=== PATIENT | male | born 1950 | race Caucasian/White ===

== ENCOUNTER 2023-05-11 09:50 | Observation (INO) | payer OTHER ==
[2023-05-11] MEDS ORDERED: ACETAMINOPHEN 325 MG TABLET PO PRN (11:16)
[2023-05-11] MEDS ORDERED: DIPHENHYDRAMINE 25 MG TAB/CAP PO PRN (11:18)
[2023-05-11] MEDS ORDERED: LOPERAMIDE HCL 2 MG CAPSULE PO PRN (11:19)
[2023-05-11] MEDS ORDERED: ONDANSETRON 4 MG/2 ML VIAL IV PRN (11:20)
[2023-05-11] MEDS ORDERED: POLYETHYL GLY 3350 17 GM/DOSE PO PRN (11:20)
[2023-05-11 11:45] LABS: Absolute Lymphocytes (CBC) 1.2 K/uL (0.7-4.9); Hematocrit 47.3 % (39.6-49.0); Lymphocytes % 17.8 % (15.3-44.8); MCV 88.2 fL (80-100); Platelets 268 thou/uL (152-406); RBC Red Blood Cell Count 5.37 M/uL (4.33-5.43)
[2023-05-11 12:06] LABS: Magnesium 2.2 mg/dL (1.6-2.4); Thyroid Stimulating Hormone 2.23 uIU/mL (0.358-3.740); Troponin High Sensitivity 8.8 pg/mL (<58.9)
[2023-05-11] MEDS: NACHLORIDE 0.45% 1,000 ML IV SCH (12:10)
[2023-05-11] MEDS: SOTALOL HCL 80 MG TAB ONE (12:19)
[2023-05-11] MEDS: SOTALOL HCL 80 MG TAB PO SCH (12:23)
--- NOTE | 2023-05-11 13:49 | RAD REPORT ---
EXAM DESCRIPTION: Talon Matt (2 Views)05/11/2023 1:32 pm CLINICAL HISTORY: AFib COMPARISON: 2020 FINDINGS: The lungs appear clear of acute infiltrate. The heart is normal size IMPRESSION: No acute abnormalities displayed
--- NOTE | 2023-05-11 17:50 | P.SSS ---
Patient History Date of Service: 05/11/23 Reason for admission: RAPID A FIB History of Present Illness: CELE CAME TO OFFICE LAST WEEK, HE HAD RAPID A FIB AT 130. I ADVISED THAT HE SHOULD BE IN HOSPITAL AND WE SHOULD GIVE HIM MEDS TO REVERSE A FIB. HE DID NOT WANT TO BE ADMITTED. HE WANTED TO CALL HIS EPS MD IN [place] AND SEE IF HE CAN DO THIS IN [place]. HE DID NOT HAVE A RIDE FOR A WEEK BUT HE STILL REFUSED TO GO TO HOSPITAL. I ASKED HIM TO CALL IF HE CHANGES HIS DECISION. HE DID SO BY GOING TO DR. BOBO AND GOT ADMITTED TODAY. I HAD GIVEN HIM ELIQUIS AND HE HAD HEMATURIA. CULTURE GREW STAPH EPID AND SO TODAY I CHANGED HIS ANTBIOTIC. CIPRO WILL NOT WORK. Allergies iodine Allergy (Verified 05/11/23 11:07) Hives midazolam [From Versed] Allergy (Verified 05/11/23 11:07) Hives hydrocodone Adverse Reaction (Verified 05/11/23 11:07) Nausea/Vomiting [id number] Reductase Inhibitor Adverse Reaction (Verified 05/11/23 11:07) Hives Home Medications: Amlodipine [Norvasc*] 2.5 mg PO DAILY 05/11/23 Apixaban [Eliquis] 5 mg PO DAILY 05/11/23 Aspirin Chewable [Aspirin Chewable*] 81 mg PO DAILY 05/11/23 Ciprofloxacin 250 mg PO BID 05/11/23 Metoprolol Succinate 25 mg PO DAILY 05/11/23 - Past Medical/Surgical History Diabetic: No -: AFib -: high cholestrol -: Acid reflux -: prostate sx -: rotator cuff sx -: heart ablasions -: orthoscopic knee sx -: discectomy - Social History Smoking Status: Never smoker Alcohol use: Yes CD- Drugs: No Caffeine use: No Place of Residence: Home Review of Systems 10-point ROS is otherwise unremarkable Physical Examination - Physical Exam General: Alert, In no apparent distress HEENT: Atraumatic, PERRLA, Mucous membr. moist/pink, EOMI, Sclerae nonicteric Neck: Supple, 2+ carotid pulse no bruit, No LAD, Without JVD or thyroid abnormality Respiratory: Clear to auscultation bilaterally, Normal air movement Cardiovascular: Irregular heart rate/rhythm Gastrointestinal: Normal bowel sounds, No tenderness Musculoskeletal: No tenderness Integumentary: No rashes Neurological: Normal gait, Normal speech, Normal strength at 5/5 x4 extr, Normal tone, Normal affect Lymphatics: No axilla or inguinal lymphadenopathy - Studies Laboratory Data (last 24 hrs) 05/11/23 05/11/23 11:31 11:31 WBC 6.70 Hgb 16.3 Hct 47.3 Plt Count 268 Sodium 140 Potassium 4.0 BUN 21 H Creatinine 1.19 Glucose 94 Magnesium 2.2 - Diagnosis (Problem(s)) (1) Rapid atrial fibrillation Current Visit: Yes Status: Acute Plan: HOPEFULLY WITH SOTALOL HE WILL CONVERT TO NSR I AM NOT SURE IF HE WILL TOLERATE ELIQUIS OR ANY AC. MAY NEED WATCHMAN LATER. (2) UTI (urinary tract infection) Current Visit: Yes Status: Acute Plan: ABOVE (3) Hematuria Current Visit: Yes Status: Acute Plan: HE WILL NEED TO GO BACK TO HIS UROLOGIST ONCE STABLE WITH A FIB. - Disposition Disposition: ROUTINE DISCHARGE
[2023-05-11] MEDS: APIXABAN 5 MG TABLET PO SCH (21:34)
[2023-05-11] MEDS: DOXYCYCLINE 100 MG CAP PO SCH (21:34)
[2023-05-11 22:11] LABS: Specific Gravity 1.012 (1.005-1.030); Urine Bacteria None Seen /HPF (<20); Urine Bilirubin NEGATIVE (Negative); Urine Blood Negative (Negative); Urine Clarity Extremely Turbid (Clear); Urine Color Light-Yellow (Yellow); Urine Glucose NEGATIVE (Negative); Urine Granular Casts 0-5 /LPF (None Seen); Urine Mucus 1+ /HPF (None Seen); Urine Protein NEGATIVE (Negative); Urine RBC <5 /HPF (None Seen); Urine Urobilinogen Normal (Normal)
[2023-05-12] MEDS: SOTALOL HCL 80 MG TAB PO SCH (00:12)
[2023-05-12 06:30] LABS: Absolute Lymphocytes (CBC) 1.4 K/uL (0.7-4.9); Lymphocytes % 22.7 % (15.3-44.8); MCV 87.4 fL (80-100); MPV 8.3 fL (7.6-11.3); Platelets 234 thou/uL (152-406); RBC Red Blood Cell Count 5.04 M/uL (4.33-5.43)
[2023-05-12 06:41] LABS: Magnesium 2.2 mg/dL (1.6-2.4)
--- NOTE | 2023-05-12 10:43 | P.CNS ---
Date of Consult: 05/12/23 Chief Complaint: RAPID A FIB History of Present Illness: patient with PMH of atrial fibrillation with two ablations in the past presented to clinic with AF RVR admitted to the hospital for better AF treatment, started on Sotalol, and this is his 3rd dose, HR better controlled today but still in AF. Allergies iodine Allergy (Verified 05/11/23 11:07) Hives midazolam [From Versed] Allergy (Verified 05/11/23 11:07) Hives hydrocodone Adverse Reaction (Verified 05/11/23 11:07) Nausea/Vomiting [id number] Reductase Inhibitor Adverse Reaction (Verified 05/11/23 11:07) Hives Home Medications: Amlodipine [Norvasc*] 2.5 mg PO DAILY 05/11/23 Apixaban [Eliquis] 5 mg PO DAILY 05/11/23 Aspirin Chewable [Aspirin Chewable*] 81 mg PO DAILY 05/11/23 Ciprofloxacin 250 mg PO BID 05/11/23 Metoprolol Succinate 25 mg PO DAILY 05/11/23 - Past Medical/Surgical History Diabetic: No -: AFib -: high cholestrol -: Acid reflux -: prostate sx -: rotator cuff sx -: heart ablasions -: orthoscopic knee sx -: discectomy - Social History Alcohol use: Yes CD- Drugs: No Caffeine use: No Place of Residence: Home Review of Systems 10-point ROS is otherwise unremarkable Physical Examination Temp Pulse Resp BP Pulse Ox 98.3 F 85 18 100/59 L 94 05/12/23 04:00 05/12/23 06:54 05/12/23 04:00 05/12/23 06:54 05/12/23 04:00 General: Alert, Oriented x3 HEENT: Atraumatic Neck: Supple Respiratory: Clear to auscultation bilaterally Cardiovascular: No edema (irregular rate and rhythm) Gastrointestinal: Normal bowel sounds Musculoskeletal: No clubbing Laboratory Data (last 24 hrs) 05/12/23 05/12/23 05/11/23 05:37 05:37 11:31 WBC 6.30 Hgb 15.4 Hct 44.0 Plt Count 234 Sodium 140 140 Potassium 4.0 4.0 BUN 22 H 21 H Creatinine 1.14 1.19 Glucose 88 94 Magnesium 2.2 2.2 05/11/23 11:31 WBC 6.70 Hgb 16.3 Hct 47.3 Plt Count 268 Sodium Potassium BUN Creatinine Glucose Magnesium - Problems (1) Atrial fibrillation with rapid ventricular response Current Visit: Yes Status: Acute Plan: Continue Sotaolol 80 mg po BID Repat EKG every 8 hours to watch for QT interval prolongation. Continue Eliquis 5 mg po BID NPO after midnight for possible SUKH DCCV in am.
--- NOTE | 2023-05-12 15:46 | EKG ---
Test Date: 2023-05-12 Test Time: 09:56:23 Teller Head: FANI MEASUREMENT RESULTS: Intervals: Rate: 86 IL: QRSD: 96 QT: 378 QTc: 452 [place]: P: [place]: QRS: 53 T: 45 INTERPRETIVE STATEMENTS: Atrial flutter with variable AV block Abnormal ECG Compared to ECG 05/11/2023 11:32:22 Atrial fibrillation no longer present Electronically Signed On 05-12-23 15:45:35 STRAP MAKER by Russ López
--- NOTE | 2023-05-12 15:50 | EKG ---
Test Date: 2023-05-11 Test Time: 11:32:22 Painter And Decorator Apprentice: FANI MEASUREMENT RESULTS: Intervals: Rate: 115 WI: QRSD: 92 QT: 334 QTc: 462 [place]: P: WI: QRS: 33 T: 25 INTERPRETIVE STATEMENTS: Atrial fibrillation with rapid ventricular response Abnormal ECG Compared to ECG 03/05/2002 05:55:00 Sinus bradycardia no longer present Electronically Signed On 05-12-23 15:46:44 POWER WASHER by Russ López
--- NOTE | 2023-05-12 17:28 | P.PN ---
Subjective Date of Service: 05/12/23 Chief Complaint: RAPID A FIB Subjective: Improving HE HAS NO SS. HIS HR IS DOWN TO 80 OR SO. STILL IN A FIB. HE HAS NO CHEST PAIN, NO HEMATURIA. Review of Systems 10-point ROS is otherwise unremarkable General: Weakness Physical Examination - Vital Signs Temperature: 97.2 F Blood Pressure: 100/80 Pulse: 86 Respirations: 16 Pulse Ox (%): 95 - Physical Exam General: Alert, In no apparent distress HEENT: Atraumatic, PERRLA, EOMI Neck: Supple, JVD not distended Respiratory: Clear to auscultation bilaterally, Normal air movement Cardiovascular: Irregular heart rate/rhythm Gastrointestinal: Normal bowel sounds, No tenderness Musculoskeletal: No tenderness Integumentary: No rashes Neurological: Normal speech, Normal tone, Normal affect Lymphatics: No axilla or inguinal lymphadenopathy - Studies Laboratory Data (last 24 hrs) 05/12/23 05/12/23 05:37 05:37 WBC 6.30 Hgb 15.4 Hct 44.0 Plt Count 234 Sodium 140 Potassium 4.0 BUN 22 H Creatinine 1.14 Glucose 88 Magnesium 2.2 Medications List Reviewed: Yes Assessment And Plan - Current Problems (Diagnosis) (1) Rapid atrial fibrillation Current Visit: Yes Status: Acute Plan: HOPEFULLY WITH SOTALOL HE WILL CONVERT TO NSR I AM NOT SURE IF HE WILL TOLERATE ELIQUIS OR ANY AC. MAY NEED WATCHMAN LATER. WAIT ONE MORE DAY. HE MAY COVERT TO SINUS. IF NOT , CV IN AM. (2) UTI (urinary tract infection) Current Visit: Yes Status: Acute Plan: ABOVE (3) Hematuria Current Visit: Yes Status: Acute Plan: HE WILL NEED TO GO BACK TO HIS UROLOGIST ONCE STABLE WITH A FIB.
[2023-05-13 00:33] VITALS: O2SAT 95
[2023-05-13 04:16] LABS: Absolute Lymphocytes (CBC) 1.6 K/uL (0.7-4.9); Hematocrit 43.1 % (39.6-49.0); Lymphocytes % 25.5 % (15.3-44.8); MCV 87.8 fL (80-100); MPV 7.8 fL (7.6-11.3); Platelets 241 thou/uL (152-406)
[2023-05-13] MEDS: NA CHLORIDE 0.9% 500 ML ONE (07:14)
[2023-05-13] MEDS ORDERED: LIDOCAINE 1% MPF 5 ML VIAL ONE (08:00)
[2023-05-13] MEDS ORDERED: propofoL 200 MG/20 ML VIAL IV ONE (08:00)
[2023-05-13 11:46] VITALS: BMI 25.7
--- NOTE | 2023-05-13 13:52 | P.PN ---
Subjective Date of Service: 05/13/23 Chief Complaint: RAPID A FIB Subjective: No new changes Review of Systems 10-point ROS is otherwise unremarkable Physical Examination - Vital Signs Temperature: 96.9 F Blood Pressure: 104/70 Pulse: 69 Respirations: 18 Pulse Ox (%): 96 - Physical Exam General: Alert, Oriented x3 HEENT: Atraumatic Neck: Supple Respiratory: Clear to auscultation bilaterally Cardiovascular: No edema, Normal S1 S2 Gastrointestinal: Normal bowel sounds - Studies Laboratory Data (last 24 hrs) 05/13/23 05/13/23 04:07 04:07 WBC 6.50 Hgb 15.0 Hct 43.1 Plt Count 241 Sodium 142 Potassium 4.0 BUN 21 H Creatinine 1.09 Glucose 94 Magnesium 2.0 Medications List Reviewed: Yes Assessment And Plan - Current Problems (Diagnosis) (1) Atrial fibrillation with rapid ventricular response Current Visit: Yes Status: Acute Plan: patient is s/p SUKH DCCV and back in sinus rhythm Continue Sotaolol 80 mg po BID Continue Eliquis 5 mg po BID follow up with cardiology in 1 week
[2023-05-13 14:40] VITALS: BP 96/63; TEMP 97.8
--- NOTE | 2023-05-13 17:05 | P.DS ---
Admission Date: 05/11/23 Discharge Date: 05/13/23 Disposition: ROUTINE DISCHARGE Discharge Condition: GOOD Reason for Admission: RAPID A FIB - Problems (1) Rapid atrial fibrillation Status: Acute (2) UTI (urinary tract infection) Status: Acute (3) Hematuria Status: Acute Brief History of Present Illness: CELE CAME TO OFFICE LAST WEEK, HE HAD RAPID A FIB AT 130. I ADVISED THAT HE SHOULD BE IN HOSPITAL AND WE SHOULD GIVE HIM MEDS TO REVERSE A FIB. HE DID NOT WANT TO BE ADMITTED. HE WANTED TO CALL HIS EPS MD IN [place] AND SEE IF HE CAN DO THIS IN [place]. HE DID NOT HAVE A RIDE FOR A WEEK BUT HE STILL REFUSED TO GO TO HOSPITAL. I ASKED HIM TO CALL IF HE CHANGES HIS DECISION. HE DID SO BY GOING TO DR. BOBO AND GOT ADMITTED TODAY. I HAD GIVEN HIM ELIQUIS AND HE HAD HEMATURIA. CULTURE GREW STAPH EPID AND SO TODAY I CHANGED HIS ANTBIOTIC. CIPRO WILL NOT WORK. Hospital Course: CELE HAD CARDIOVERSION DONE TODAY. HE IS BACK IN SINUS RHYTHM.HE WILL CONTINUE SOTALOL AND ELIQUIS. HE NEEDS DOXYCYCLIN FOR A FEW MORE DAYS FOR UTI WITH STAPH EPI FROM OFFICE. STOP AMLOD AND METOPROLOL. HE HAS BEEN TOLD. Vital Signs/Physical Exam: Temp Pulse Resp BP Pulse Ox 97.8 F 78 15 96/63 96 05/13/23 14:00 05/13/23 14:00 05/13/23 14:00 05/13/23 14:00 05/13/23 14:00 Laboratory Data at Discharge: WBC 6.50 thou/uL (4.3-10.9) 05/13/23 04:07 Hgb 15.0 g/dL (13.6-17.9) 05/13/23 04:07 Hct 43.1 % (39.6-49.0) 05/13/23 04:07 Plt Count 241 thou/uL (152-406) 05/13/23 04:07 Sodium 142 mEq/L (136-145) 05/13/23 04:07 Potassium 4.0 mEq/L (3.5-5.1) 05/13/23 04:07 BUN 21 mg/dL (7-18) H 05/13/23 04:07 Creatinine 1.09 mg/dL (0.70-1.30) 05/13/23 04:07 Glucose 94 mg/dL (74-106) 05/13/23 04:07 Magnesium 2.0 mg/dL (1.6-2.4) 05/13/23 04:07 Home Medications: Amlodipine [Norvasc*] 2.5 mg PO DAILY 05/11/23 Apixaban [Eliquis] 5 mg PO DAILY 05/11/23 Aspirin Chewable [Aspirin Chewable*] 81 mg PO DAILY 05/11/23 Ciprofloxacin 250 mg PO BID 05/11/23 Metoprolol Succinate 25 mg PO DAILY 05/11/23 Apixaban [Eliquis] 5 mg PO BID #60 tablet 05/13/23 Sotalol HCl [Betapace] 80 mg PO BID #60 tab 05/13/23 New Medications: Sotalol HCl [Betapace] 80 mg PO BID #60 tab Apixaban [Eliquis] 5 mg PO BID #60 tablet Physician Discharge Instructions: --PROBLEM: Afib GOAL: Clear understanding of disease process INSTRUCTIONS: Follow up with Dr. Quinteros and Marketing Programs Specialist in 1 week, call to make appointments. Carola call the 2nd floor nursing station with any questions and concerns. [phone] Diet: Heart Healthy Activity: As tolerated COMMUNITY SERVICES Services Needed: None Name of Company: Date or Referral: IMMUNIZATION Influenza Vaccine Indicated: No Influenza Vaccine Given: Date Given: Pneumonia Vaccine Indicated: No Pneumonia Vaccine Given: Date Given: Followup: Sim Quinteros MD [Primary Care Provider] - Rhett Stevens MD [ACTIVE - CAN ADMIT] -
--- NOTE | 2023-05-14 06:49 | TEE ---
TRANSESOPHAGEAL ECHOCARDIOGRAM REPORT CARDIOLOGY DEPARTMENT DATE OF STUDY: 05/13/2023 HEIGHT: 5'8" WEIGHT: 169 lbs DIAGNOSIS: ATRIAL FIBRILLATION INCIDENT COMMANDER COMMENTS: SUKH CARDIAC HISTORY: CATHERIZATION: SURGERY: PROSTHETIC VALVE: PACEMAKER: 2 DIMENSIONAL ASSESSMENT: RIGHT ATRIUM: NORMAL LEFT ATRIUM: ENLARGED RIGHT VENTRICLE: NOT ASSESSED LEFT VENTRICLE: NOT ASSESSED TRICUSPID VALVE: NORMAL MITRAL VALVE: NORMAL PULMONIC VALVE: NORMAL AORTIC VALVE: NORMAL PERICARDIAL EFFUSION: NONE AORTIC ROOT: NORMAL EJECTION FRACTION: LEFT VENTRICULAR WALL MOTION: NOT ASSESSED DOPPLER/COLOR FLOW: NOT ASSESSED COMMENTS: 1. NORMAL LEFT ATRIAL APPENDAGE, NO CLOT. TECHNOLOGIST: YARELY PIMENTEL
--- NOTE | 2023-05-14 15:27 | EKG ---
Test Date: 2023-05-13 Test Time: 08:11:20 Pill Maker: FANI MEASUREMENT RESULTS: Intervals: Rate: 51 SC: 252 QRSD: 100 QT: 508 QTc: 468 [place]: P: 88 SC: 252 QRS: 17 T: 22 INTERPRETIVE STATEMENTS: Sinus bradycardia with 1st degree AV block Otherwise normal ECG Compared to ECG 05/12/2023 09:56:23 First degree AV block now present Atrial flutter no longer present Electronically Signed On 05-14-23 15:24:35 FLAT MACHINE CUTTER by Russ López
== END 2023-05-13 14:33 | disposition home or self-care (01) ==
LOC: 2ND 09:50
PROVIDERS: ADMIT Internal Medicine; ATTEND Internal Medicine
DX: I48.20 Chronic atrial fibrillation, unspecified (principal); N39.0 Urinary tract infection, site not specified; R31.9 Hematuria, unspecified; Z91.09 Other allergy status, other than to drugs and biological substances; Z88.5 Allergy status to narcotic agent; Z88.8 Allergy status to other drugs, medicaments and biological substances
CPT/HCPCS: 93005 ×3; 93312; 87040; 85025 ×3; 81001; 80048 ×3; 36415 ×2; 83735 ×3; 84443; 84484; 71046; 92960; J2704; J2001; J7040; G0378; G0379